=== PATIENT | female | born 1980 | race African-American/Black ===

== ENCOUNTER 2017-09-04 18:21 | Emergency (ER) | payer MEDICAID ==
[~2017-09-04] VITALS: Ht 167.6 cm; Wt 59.0 kg
[2017-09-04 19:02] LABS: Basophils # (auto) 0 uL; Basophils % (auto) 0.4 % (0.0-2.0); Eosinophils # (auto) 0 uL; Eosinophils % (auto) 0.9 % (0.0-7.0); Hematocrit 38.2 % (36.0-46.0); Hemoglobin 12.6 g/dL (12.2-16.2); Lymphocytes # (auto) 0.2 uL; Lymphocytes % (auto) 4.5 % (10.0-50.0); Mean Corpuscular Hemoglobin 29.3 pg (28.0-32.0); Mean Corpuscular Volume 88.9 fL (80.0-100.0); Monocytes # (auto) 0.6 uL; Monocytes % (auto) 13.4 % (0.0-12.0); Neutrophils # (auto) 3.7 uL; Neutrophils % (auto) 80.8 % (37.0-80.0); Nucleated Red Blood Cells % 0.1 %; Platelet Count (auto) 171 10^3/uL (140-450); Red Cell Distribution Width 15.2 % (11.8-14.3); White Blood Cell 4.6 10^3/uL (4.4-10.8)
[2017-09-04 19:26] LABS: Alanine Aminotransferase 46 U/L (13-56); Alkaline Phosphatase 81 U/L (45-117); Anion Gap 9 (5-15); Aspartate Aminotransferase 45 U/L (15-37); Bilirubin, Total 0.6 mg/dL (0.2-1.0); Blood Urea Nitrogen 9 mg/dL (7-18); Calcium 8.6 mg/dL (8.5-10.1); Carbon Dioxide 25 mmol/L (21-32); Chloride 102 mmol/L (98-107); GFR African American 101 mL/min; GFR Non-African American 84 mL/min; Glucose 84 mg/dL (74-106); Potassium 3.1 mmol/L (3.5-5.1); Sodium 136 mmol/L (136-145); Total Protein 8.4 g/dL (6.4-8.2)
[2017-09-04] MEDS ORDERED: cefTRIAXone 1GM/10ml IVPUSH 10 ML IV ONE ×2 (20:15→21:15)
[2017-09-04] MEDS ORDERED: SODIUM CHLORIDE 0.9% 1,000 ML IV ONE (20:30)
[2017-09-04 20:49] LABS: Urine Pregnacy Test Negative (Negative)
[2017-09-04 20:57] LABS: Urine Bacteria NONE SEEN /hpf (None Seen); Urine Blood 1+ /uL (Negative); Urine Mucus FEW (None Seen); Urine Specific Gravity 1.028 (1.001-1.035); Urine WBC 1 /hpf (0 - 5)
[2017-09-04 21:05] LABS: Amphetamine Screen, Urine NEGATIVE (NEGATIVE); Barbiturate Scree,Urine NEGATIVE (NEGATIVE); Benzodiazephine Screen, Urine NEGATIVE (NEGATIVE); Cannabinoid Screen, Urine POSITIVE (NEGATIVE); Cocaine Screen, Urine NEGATIVE (NEGATIVE); Opiate Scree,Urine POSITIVE (NEGATIVE); Phencyclidine Screen, Urine NEGATIVE (NEGATIVE)
[2017-09-04] MEDS ORDERED: ONDANSETRON HCL 4 MG/2 ML VIAL IV ONE (23:15)
[2017-09-04] MEDS ORDERED: MORPHINE SULFATE 8mg/ml INJ SDV IV ONE (23:15)
[2017-09-05] MEDS ORDERED: POTASSIUM CHL 20 Meq TABLET PO ONE
[2017-09-05 01:37] VITALS: BP 122/76
== END 2017-09-05 01:58 | disposition home or self-care (01) ==
LOC: ER 18:21
DX: R07.89 Other chest pain (principal); J02.9 Acute pharyngitis, unspecified; J03.90 Acute tonsillitis, unspecified; M79.1 Myalgia; J45.909 Unspecified asthma, uncomplicated; F17.210 Nicotine dependence, cigarettes, uncomplicated; Z88.8 Allergy status to other drugs, medicaments and biological substances
CPT/HCPCS: 36415; 70450; 72125; 80053; 80307; 81001; 81025; 83880; 84484; 85025; 93005; 96361; 96374; 96375; 99285; J2270; J2405; J7030

== ENCOUNTER 2018-07-19 21:28 | Emergency (ER) | payer MEDICAID ==
[~2018-07-19] VITALS: Ht 167.6 cm; Wt 56.7 kg
[2018-07-20 01:28] VITALS: BP 130/77
== END 2018-07-20 01:32 | disposition home or self-care (01) ==
LOC: ER 21:31
DX: L65.9 Nonscarring hair loss, unspecified (principal); J06.9 Acute upper respiratory infection, unspecified; L98.8 Other specified disorders of the skin and subcutaneous tissue
CPT/HCPCS: 70450

== ENCOUNTER 2022-10-20 15:03 | Emergency (ER) | payer MEDICAID ==
[~2022-10-20] VITALS: Ht 170.2 cm; Wt 51.6 kg
[2022-10-20 16:44] LABS: Urine Bacteria NONE SEEN /hpf (None Seen); Urine Blood Negative /uL (Negative); Urine Mucus FEW (None Seen); Urine Specific Gravity 1.029 (1.001-1.035); Urine WBC 2 /hpf (0 - 5)
[2022-10-20 19:58] LABS: Basophils # (auto) 0 10 ^3/uL (0-0.2); Basophils % (auto) 0.5 % (0.0-2.0); Eosinophils # (auto) 0 10 ^3/uL (0-0.8); Eosinophils % (auto) 0.7 % (0.0-7.0); Hematocrit 34.1 % (36.0-46.0); Hemoglobin 11.6 g/dL (12.2-16.2); Lymphocytes # (auto) 0.9 10 ^3/uL (0.4-5.4); Lymphocytes % (auto) 21.2 % (10.0-50.0); Mean Corpuscular Hemoglobin 31.3 pg (28.0-32.0); Mean Corpuscular Volume 92.3 fL (80.0-100.0); Monocytes # (auto) 0.6 10 ^3/uL (0-1.3); Monocytes % (auto) 13.3 % (0.0-12.0); Neutrophils # (auto) 2.8 10 ^3/uL (1.6-8.6); Neutrophils % (auto) 64.3 % (37.0-80.0); Red Blood Cells 3.69 10^6/uL (4.0-5.20); Red Cell Distribution Width 15.8 % (11.8-14.3); White Blood Cell 4.4 10^3/uL (4.4-10.8)
[2022-10-20 20:22] VITALS: BP 182/121
[2022-10-20 20:29] LABS: Albumin 3.7 g/dL (3.4-5.0); BUN/Creatinine Ratio 15.3 (10.0-20.0); Bilirubin, Total 1.4 mg/dL (0.2-1.0); Calcium 8.3 mg/dL (8.5-10.1); Total Protein 8.7 g/dL (6.4-8.2)
[2022-10-20] MEDS ORDERED: IBUPROFEN 800 MG TAB PO ONE (20:30)
[2022-10-20 20:32] LABS: Potassium 2.8 mmol/L (3.5-5.1)
[2022-10-20] MEDS ORDERED: POTASSIUM CHL 20 Meq TABLET PO ONE (20:45)
[2022-10-20] MEDS ORDERED: cloNIDine HCL 0.1 MG TAB PO ONE (20:45)
[2022-10-20] MEDS ORDERED: MET50T PO (20:49)
[2022-10-20] MEDS ORDERED: IBUP-1455 PO (20:49)
== END 2022-10-20 21:25 | disposition home or self-care (01) ==
LOC: ER 15:03
DX: E87.6 Hypokalemia (principal); I16.0 Hypertensive urgency; R74.8 Abnormal levels of other serum enzymes; I10 Essential (primary) hypertension; J45.909 Unspecified asthma, uncomplicated; F17.210 Nicotine dependence, cigarettes, uncomplicated; F10.90 Alcohol use, unspecified, uncomplicated; F12.90 Cannabis use, unspecified, uncomplicated; Z88.8 Allergy status to other drugs, medicaments and biological substances
CPT/HCPCS: 36415; 70450; 72170; 80053; 81001; 85025